=== PATIENT | male | born 1935 | race Caucasian/White ===

== ENCOUNTER 2020-12-22 14:25 | Emergency (ER) | payer MEDICARE, OTHER ==
--- NOTE | 2020-12-22 14:48 | EDM.PDOC ---
ED HPI GENERAL MEDICAL PROBLEM - General Stated Complaint: ER Time Seen by Provider: 12/22/20 14:30 Source of Information: Reports: Patient, EMS, EMS Notes Reviewed, RN, RN Notes Reviewed History Limitations: Reports: Altered Mental Status - History of Present Illness INITIAL COMMENTS - FREE TEXT/NARRATIVE: Patient is an 85-year-old male who presents to ER per [facility] ambulance service with complaint of 3-4 syncopal episodes today. EMS reports patient had chest pain after each syncopal episode, patient denies any chest pains, is pain- free at this time. EMS reports giving the patient 4 baby aspirin in route. Patient states a significant cardiac history, stent placement, MIs, aortic stenosis. States he is to have a valve replacement, but this has not been scheduled yet. Patient denies any recent illnesses. Patient is disoriented to time, date, month, year. states this is new for him. states over the past week patient has been very irritable, and somewhat confused from time to time. She states this is new. Onset: Today, Sudden - Related Data Allergies Allergy/AdvReac Type Severity Reaction Status Date / Time moxifloxacin [From Vigamox] Allergy Cannot Verified 12/22/20 15:27 Remember nitroglycerin Allergy Cannot Verified 12/22/20 15:27 Remember Penicillins Allergy Cannot Verified 12/22/20 15:27 Remember ED ROS GENERAL - Review of Systems Review Of Systems: Comprehensive ROS is negative, except as noted in HPI. ED EXAM, GENERAL - Physical Exam Exam: See Below Exam Limited By: Other (disoriented to time, vague) General Appearance: Alert, WD/WN, No Apparent Distress Eye Exam: Bilateral Eye: EOMI, Normal Inspection Ears: Normal External Exam, Hearing Grossly Normal Nose: Normal Inspection Throat/Mouth: Normal Inspection, Normal Voice, No Airway Compromise Head: Atraumatic, Normocephalic Neck: Normal Inspection, Supple, Non-Tender, Full Range of Motion Respiratory/Chest: No Accessory Muscle Use, Chest Non-Tender, Decreased Breath Sounds, Crackles Cardiovascular: Normal Peripheral Pulses, No Edema, No Gallop, No JVD, No Rub, Systolic Murmur Peripheral Pulses: 2+: Radial (L), Radial (R) GI/Abdominal: Normal Bowel Sounds, Soft, Non-Tender (Male) Exam: Deferred Rectal (Males) Exam: Deferred Back Exam: Normal Inspection, Full Range of Motion, NT Extremities: Normal Inspection, Normal Range of Motion, Non-Tender, Normal C apillary Refill, No Pedal Edema Neurological: Alert, CN II-XII Intact, Normal Cognition, Normal Gait, Normal Reflexes, No Motor/Sensory Deficits, Disoriented Psychiatric: Normal Affect, Normal Mood Skin Exam: Warm, Dry, Intact, Normal Color, No Rash Lymphatic: No Adenopathy #1 Interpretation EKG Date: 12/22/20 Time: 14:34 Rhythm: Other (Sinus rhythm) Rate (Beats/Min): 68 P-Wave: Present QRS: LBBB ST-T: Elevated QT: Normal Comparison: NA - No Prior EKG #2 Interpretation EKG Date: 12/22/20 Time: 16:21 Rhythm: NSR Rate (Beats/Min): 59 [place]: Normal P-Wave: Present QRS: LBBB ST-T: Normal QT: Normal Comparison: No Change Course - Vital Signs Last Recorded V/S: Last Vital Signs Temp 98.8 F 12/22/20 14:25 Pulse 60 12/22/20 18:31 Resp 20 12/22/20 18:31 BP 175/98 H 12/22/20 18:31 Pulse Ox 95 12/22/20 18:31 - Orders/Labs/Meds Orders: Active Orders 24 hr Category Date Time Status EKG Documentation Completion [RC] STAT Care 12/22/20 14:36 Active EKG Documentation Completion [RC] STAT Care 12/22/20 16:16 Active Labs: Laboratory Tests 12/22/20 12/22/20 12/22/20 Range/Units 14:46 15:00 15:00 WBC 7.4 (4.0-10.0) x10^3/uL RBC 4.95 (4.5-6.0) x10^6/uL Hgb 15.0 (14.0-18.0) g/dL Hct 43.5 (40.0-52.0) % MCV 87.9 (78.0-93.0) fL MCH 30.3 (26.0-32.0) pg MCHC 34.5 (32.0-36.0) g/dL RDW Coeff of [place] 13.7 (10.0-15.0) % Plt Count 151 (130-400) x10^3/uL Neut % (Auto) 74.9 (50.0-80.0) % Lymph % (Auto) 15.3 L (25.0-50.0) % [place] % (Auto) 9.2 (2.0-11.0) % Eos % (Auto) 0.3 (0.0-4.0) % Baso % (Auto) 0.3 (0.2-1.2) % PT 11.6 (9.9-12.5) SEC INR 1.0 L (2.0-3.5) D-Dimer, Quantitative (<=0.58) mg/LFEU Sodium (136-145) mmol/L Potassium (3.5-5.1) mmol/L Chloride (98-107) mmol/L Carbon Dioxide (21-32) mmol/L Anion Gap (5-15) mmol/L BUN (7-18) mg/dL Creatinine (0.70-1.30) mg/dL Est Cr Clr Drug Dosing Estimated GFR (MDRD) Glucose (70-99) mg/dL Calcium (8.5-10.1) mg/dL Corrected Calcium (8.5-10.1) mg/dL Magnesium (1.8-2.4) mg/dL Total Bilirubin (0.2-1.0) mg/dL AST (15-37) U/L ALT (16-63) U/L Alkaline Phosphatase (46-116) U/L Troponin I High Sens (<=76) ng/L Total Protein (6.4-8.2) g/dL Albumin (3.4-5.0) g/dL Globulin Albumin/Globulin Ratio Urine Color (YELLOW) Urine Appearance (CLEAR) Urine pH (5.0-8.0) Ur Specific [place] Urine Protein (NEGATIVE) mg/dL Urine Glucose (UA) (NEGATIVE) mg/dL Urine Ketones (NEGATIVE) mg/dL Urine Occult Blood (NEGATIVE) Urine Nitrite (NEGATIVE) Urine Bilirubin (NEGATIVE) Urine Urobilinogen (0.2) EU/dL Ur Leukocyte Esterase (NEGATIVE) Ethyl Alcohol (0-3) mg/dL SARS-CoV-2 RNA ([place]) Negative (NEGATIVE) 12/22/20 12/22/20 12/22/20 Range/Units 15:00 15:00 15:00 WBC (4.0-10.0) x10^3/uL RBC (4.5-6.0) x10^6/uL Hgb (14.0-18.0) g/dL Hct (40.0-52.0) % MCV (78.0-93.0) fL MCH (26.0-32.0) pg MCHC (32.0-36.0) g/dL RDW Coeff of [place] (10.0-15.0) % Plt Count (130-400) x10^3/uL Neut % (Auto) (50.0-80.0) % Lymph % (Auto) (25.0-50.0) % [place] % (Auto) (2.0-11.0) % Eos % (Auto) (0.0-4.0) % Baso % (Auto) (0.2-1.2) % PT (9.9-12.5) SEC INR (2.0-3.5) D-Dimer, Quantitative 0.54 (<=0.58) mg/LFEU Sodium 140 (136-145) mmol/L Potassium 4.0 (3.5-5.1) mmol/L Chloride 103 (98-107) mmol/L Carbon Dioxide 27 (21-32) mmol/L Anion Gap 14.0 (5-15) mmol/L BUN 17 (7-18) mg/dL Creatinine 0.9 (0.70-1.30) mg/dL Est Cr Clr Drug Dosing TNP Estimated GFR (MDRD) > 60 Glucose 124 H (70-99) mg/dL Calcium 8.5 (8.5-10.1) mg/dL Corrected Calcium 8.82 (8.5-10.1) mg/dL Magnesium 2.0 (1.8-2.4) mg/dL Total Bilirubin 0.6 (0.2-1.0) mg/dL AST 22 (15-37) U/L ALT 34 (16-63) U/L Alkaline Phosphatase 75 (46-116) U/L Troponin I High Sens 14 (<=76) ng/L Total Protein 6.9 (6.4-8.2) g/dL Albumin 3.6 (3.4-5.0) g/dL Globulin 3.3 Albumin/Globulin Ratio 1.09 Urine Color (YELLOW) Urine Appearance (CLEAR) Urine pH (5.0-8.0) Ur Specific [place] Urine Protein (NEGATIVE) mg/dL Urine Glucose (UA) (NEGATIVE) mg/dL Urine Ketones (NEGATIVE) mg/dL Urine Occult Blood (NEGATIVE) Urine Nitrite (NEGATIVE) Urine Bilirubin (NEGATIVE) Urine Urobilinogen (0.2) EU/dL Ur Leukocyte Esterase (NEGATIVE) Ethyl Alcohol < 3 (0-3) mg/dL SARS-CoV-2 RNA ([place]) (NEGATIVE) 12/22/20 Range/Units 17:29 WBC (4.0-10.0) x10^3/uL RBC (4.5-6.0) x10^6/uL Hgb (14.0-18.0) g/dL Hct (40.0-52.0) % MCV (78.0-93.0) fL MCH (26.0-32.0) pg MCHC (32.0-36.0) g/dL RDW Coeff of [place] (10.0-15.0) % Plt Count (130-400) x10^3/uL Neut % (Auto) (50.0-80.0) % Lymph % (Auto) (25.0-50.0) % [place] % (Auto) (2.0-11.0) % Eos % (Auto) (0.0-4.0) % Baso % (Auto) (0.2-1.2) % PT (9.9-12.5) SEC INR (2.0-3.5) D-Dimer, Quantitative (<=0.58) mg/LFEU Sodium (136-145) mmol/L Potassium (3.5-5.1) mmol/L Chloride (98-107) mmol/L Carbon Dioxide (21-32) mmol/L Anion Gap (5-15) mmol/L BUN (7-18) mg/dL Creatinine (0.70-1.30) mg/dL Est Cr Clr Drug Dosing Estimated GFR (MDRD) Glucose (70-99) mg/dL Calcium (8.5-10.1) mg/dL Corrected Calcium (8.5-10.1) mg/dL Magnesium (1.8-2.4) mg/dL Total Bilirubin (0.2-1.0) mg/dL AST (15-37) U/L ALT (16-63) U/L Alkaline Phosphatase (46-116) U/L Troponin I High Sens (<=76) ng/L Total Protein (6.4-8.2) g/dL Albumin (3.4-5.0) g/dL Globulin Albumin/Globulin Ratio Urine Color Yellow (YELLOW) Urine Appearance Clear (CLEAR) Urine pH 5.0 (5.0-8.0) Ur Specific [place] 1.025 Urine Protein Negative (NEGATIVE) mg/dL Urine Glucose (UA) Negative (NEGATIVE) mg/dL Urine Ketones Negative (NEGATIVE) mg/dL Urine Occult Blood Negative (NEGATIVE) Urine Nitrite Negative (NEGATIVE) Urine Bilirubin Negative (NEGATIVE) Urine Urobilinogen 0.2 (0.2) EU/dL Ur Leukocyte Esterase Negative (NEGATIVE) Ethyl Alcohol (0-3) mg/dL SARS-CoV-2 RNA ([place]) (NEGATIVE) Meds: Medications Discontinued Medications Generic Name Dose Route Start Last Admin Trade Name Gopiq PRN Reason Stop Dose Admin Labetalol HCl 10 mg 12/22/20 16:44 12/22/20 16:53 Labetalol 20 Mg/4 Ml Syringe IVPUSH 12/22/20 16:45 10 mg NOW ONE Administration Protocol - Radiology Interpretation Free Text/Narrative:: Head CT wo contrast: No acute findings Chest xray: Low lung volumes with bibasilar atelectasis Cardiomegaly without evidence of edema See rad report - Re-Assessments/Exams Free Text/Narrative Re-Assessment/Exam: 12/22/20 16:52 Discussed patient case with Dr. Prescott, Cardiology at [facility], as well as Dr. Myers who agreed to accept the patient. Patient will be transferred via [facility]. 12/22/20 18:56 Labetalol given with some decrease in BP (140's/80's). BP did slowly increase after initial labetalol. Departure - Departure Time of Disposition: 18:57 Disposition: DC/Tfer to Acute Hospital 02 Reason for Transfer *Q: Other Condition: Fair Clinical Impression: Syncopal episodes Qualifiers: Syncope type: unspecified Qualified Code(s): R55 - Syncope and collapse Referrals: Drew,Julieth R, MD [Primary Care Provider] - Forms: ED Department Discharge, Interfacility Transfer JAMEY Sepsis Event Note (ED) - Focused Exam Vital Signs: Vital Signs Temp Pulse Resp BP Pulse Ox 12/22/20 18:31 60 20 175/98 H 95 12/22/20 17:30 69 166/97 H 94 L 12/22/20 17:08 69 19 146/99 H 95 12/22/20 16:41 57 L 16 190/102 H 97 12/22/20 16:07 170/83 H 12/22/20 14:25 98.8 F 72 18 162/92 H 98 - My Orders Last 24 Hours: My Active Orders 12/22/20 14:36 EKG Documentation Completion [RC] STAT 12/22/20 16:16 EKG Documentation Completion [RC] STAT - Assessment/Plan Last 24 Hours: My Active Orders 12/22/20 14:36 EKG Documentation Completion [RC] STAT 12/22/20 16:16 EKG Documentation Completion [RC] STAT
[2020-12-22 15:25] LABS: CHLORIDE,CL 103 mmol/L (98-107); SODIUM,NA 140 mmol/L (136-145)
--- NOTE | 2020-12-22 15:53 | CT ---
[id number] CT/CT Head WO IV EXAM: NONCONTRAST HEAD CT INDICATION: DISORIENTED TO TIME/DATE, SYNCOPAL EPISODES. COMPARISON: None. DISCUSSION: Mild to moderate generalized cerebral atrophy with relative sparing of the occipital lobes. 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 Mild chronic small vessel ischemic changes. No mass effect or midline shift. No acute hemorrhage or extra-axial fluid collection. No acute territorial infarct is identified. Mild bilateral sinus mucosal thickening. IMPRESSION: 1. No acute intracranial findings. Isai Le MD 12/22/20 [id number] Thank you for allowing us to participate in the care of your patient.
[2020-12-22] MEDS ORDERED: Labetalol 20 MG/4 ML Syringe IVPUSH ONE (16:44)
--- NOTE | 2020-12-22 18:33 | CR ---
[id number] RAD/RAD Chest Portable EXAM: PORTABLE CHEST INDICATION: CHEST PAIN COMPARISON: None. DISCUSSION: The lungs are hypoinflated with central vascular crowding and basilar atelectasis. Cardiomegaly without evidence of edema. Sternotomy. Tortuous thoracic aorta. Possible enlargement of the main pulmonary arterial segment. Moderate hiatus hernia. IMPRESSION: 1. Low lung volumes with bibasilar atelectasis. 2. Cardiomegaly without evidence of edema. Isai Le MD 12/22/20 [id number] Thank you for allowing us to participate in the care of your patient.
== END 2020-12-22 19:13 | disposition short-term general hospital (02) ==
LOC: VM.ED 14:25
DX: R55 Syncope and collapse (principal); Z20.822 Contact with and (suspected) exposure to COVID-19; Z88.1 Allergy status to other antibiotic agents; Z88.0 Allergy status to penicillin
CPT/HCPCS: 36415; 70450; 71045; 80053; 80307; 81003; 83735; 84484; 85025; 85379; 85610; 93005; 93010; 96374; 99284; 99285-25; J3490; U0002

== ENCOUNTER 2021-02-07 08:12 | Emergency (ER) | payer MEDICARE, OTHER ==
[2021-02-07] MEDS ORDERED: Sodium Chloride 0.9% 10 ML Syringe FLUSH PRN (08:44)
--- NOTE | 2021-02-07 09:08 | EDM.PDOC ---
ED HPI GENERAL MEDICAL PROBLEM - General Chief Complaint: Abdominal Pain Stated Complaint: Abdominal Pain Time Seen by Provider: 02/07/21 08:33 Source of Information: Reports: Patient History Limitations: Reports: No Limitations - History of Present Illness INITIAL COMMENTS - FREE TEXT/NARRATIVE: Patient comes emergency department today from home with complaints of lower abdominal pain. This patient woke this morning he had severe cramping in the lower aspect of his abdomen. It was so severe it almost took his breath away. It is almost completely resolved. He has no other abdominal pain at this time. He has had no nausea or vomiting. No hematuria dysuria urinary frequency. No flank pain. He had a normal bowel movement this morning. He has had no black tarry stools or diarrhea. He denies any fever or chills. He has had surgery in his abdomen to remove his colon due to colon cancer but this was many years ago. He has no history of diverticulosis or diverticulitis. He does feel quite a bit better now. He does have a rather extensive history of hypertension aortic stenosis that is severe coronary artery disease recently had a pacemaker placed hyperlipidemia. He has had no chest pain no shortness of breath or difficulty breathing. No cough or congestion. No weakness dizziness lightheadedness. No palpitations. He has received his Covid vaccine. Abdominal Pain Pain Score (Numeric/FACES): 5 - Related Data Allergies Allergy/AdvReac Type Severity Reaction Status Date / Time nitroglycerin Allergy Severe Hives Verified 02/07/21 09:28 moxifloxacin [From Vigamox] Allergy Intermediate Redness Verified 02/07/21 09:28 Penicillins Allergy Cannot Verified 02/07/21 08:29 Remember Home Meds: Home Meds Amiodarone [Cordarone] 200 mg PO DAILY 02/07/21 [History] Aspirin [Aspirin EC] 81 mg PO ASDIRECTED 02/07/21 [History] Ferrous Sulfate [Feosol] 325 mg PO DAILY 02/07/21 [History] Metoprolol Succinate [Toprol XL] 200 mg PO DAILY 02/07/21 [History] Rosuvastatin [Crestor] 10 mg PO DAILY 02/07/21 [History] Spironolactone [Aldactone] 25 mg PO DAILY 02/07/21 [History] Triamcinolone Acetonide [Kenalog 0.1% Crm] 80 gm TOP BID PRN 02/07/21 [History] amLODIPine [Norvasc] 5 mg PO DAILY 02/07/21 [History] lisinopriL [Prinivil] 20 mg PO BID 02/07/21 [History] Past Medical History Cardiovascular History: Reports: Angina, Heart Failure, High Cholesterol, Hypertension, Stents Respiratory History: Reports: Sleep Apnea Gastrointestinal History: Reports: Hiatal Hernia Musculoskeletal History: Reports: Osteoarthritis - Past Surgical History Cardiovascular Surgical History: Reports: Coronary Artery Stent Other Cardiovascular Surgeries/Procedures: aortic valve stenosis. non-rheumatic mitral regurgitation Social & Family History - Tobacco Use Tobacco Use Status *Q: Former Tobacco User Used Tobacco, but Quit: Yes Month/Year Tobacco Last Used: 50 - Recreational Drug Use Recreational Drug Use: No ED ROS GENERAL - Review of Systems Review Of Systems: Comprehensive ROS is negative, except as noted in HPI. ED EXAM, GI/ABD - Physical Exam Exam: See Below Exam Limited By: No Limitations General Appearance: Alert, WD/WN, No Apparent Distress Respiratory/Chest: No Respiratory Distress, Lungs Clear, Normal Breath Sounds, No Accessory Muscle Use, Chest Non-Tender Cardiovascular: Normal Peripheral Pulses, Regular Rate, Rhythm, Systolic Murmur GI/Abdominal Exam: Normal Bowel Sounds, Soft, Non-Tender, No Organomegaly, No Distention, No Abnormal Bruit, Pelvis Stable (Male) Exam: Deferred Rectal (Males) Exam: Deferred Back Exam: Normal Inspection, Full Range of Motion Extremities: Normal Inspection, Normal Range of Motion, No Pedal Edema, Normal Capillary Refill Neurological: Alert, Oriented, Normal Cognition, No Motor/Sensory Deficits Psychiatric: Normal Affect, Normal Mood Skin Exam: Warm, Dry, Intact, Normal Color, No Rash Lymphatic: No Adenopathy Course - Vital Signs Last Recorded V/S: Last Vital Signs Temp 97.2 F 02/07/21 08:34 Pulse 60 02/07/21 08:34 Resp 16 02/07/21 08:34 BP 137/70 02/07/21 08:34 Pulse Ox 96 02/07/21 08:34 - Orders/Labs/Meds Orders: Active Orders 24 hr Category Date Time Status Peripheral IV Insertion Adult [OM.PC] Stat Oth 02/07/21 08:44 Ordered Labs: Laboratory Tests 02/07/21 02/07/21 02/07/21 Range/Units 08:55 09:10 09:10 WBC 6.1 (4.0-10.0) x10^3/uL RBC 4.72 (4.5-6.0) x10^6/uL Hgb 14.7 (14.0-18.0) g/dL Hct 41.7 (40.0-52.0) % MCV 88.3 (78.0-93.0) fL MCH 31.1 (26.0-32.0) pg MCHC 35.3 (32.0-36.0) g/dL RDW Coeff of [place] 13.7 (10.0-15.0) % Plt Count 141 (130-400) x10^3/uL Neut % (Auto) 62.7 (50.0-80.0) % Lymph % (Auto) 24.1 L (25.0-50.0) % [place] % (Auto) 11.6 H (2.0-11.0) % Eos % (Auto) 1.1 (0.0-4.0) % Baso % (Auto) 0.5 (0.2-1.2) % Sodium 138 (136-145) mmol/L Potassium 4.2 (3.5-5.1) mmol/L Chloride 102 (98-107) mmol/L Carbon Dioxide 27 (21-32) mmol/L Anion Gap 13.2 (5-15) mmol/L BUN 17 (7-18) mg/dL Creatinine 1.0 (0.70-1.30) mg/dL Est Cr Clr Drug Dosing TNP Estimated GFR (MDRD) > 60 Glucose 94 (70-99) mg/dL Lactic Acid (0.4-2.0) mmol/L Calcium 8.8 (8.5-10.1) mg/dL Corrected Calcium 9.1 (8.5-10.1) mg/dL Total Bilirubin 0.7 (0.2-1.0) mg/dL AST 28 (15-37) U/L ALT 43 (16-63) U/L Alkaline Phosphatase 76 (46-116) U/L C-Reactive Protein < 0.2 (<=0.9) mg/dL Total Protein 7.2 (6.4-8.2) g/dL Albumin 3.6 (3.4-5.0) g/dL Globulin 3.6 Albumin/Globulin Ratio 1.00 Lipase 108 (73-393) U/L Urine Color Yellow (YELLOW) Urine Appearance Clear (CLEAR) Urine pH 6.0 (5.0-8.0) Ur Specific [place] 1.015 Urine Protein Negative (NEGATIVE) mg/dL Urine Glucose (UA) Negative (NEGATIVE) mg/dL Urine Ketones Negative (NEGATIVE) mg/dL Urine Occult Blood Negative (NEGATIVE) Urine Nitrite Negative (NEGATIVE) Urine Bilirubin Negative (NEGATIVE) Urine Urobilinogen 0.2 (0.2) EU/dL Ur Leukocyte Esterase Negative (NEGATIVE) 02/07/21 Range/Units 09:10 WBC (4.0-10.0) x10^3/uL RBC (4.5-6.0) x10^6/uL Hgb (14.0-18.0) g/dL Hct (40.0-52.0) % MCV (78.0-93.0) fL MCH (26.0-32.0) pg MCHC (32.0-36.0) g/dL RDW Coeff of [place] (10.0-15.0) % Plt Count (130-400) x10^3/uL Neut % (Auto) (50.0-80.0) % Lymph % (Auto) (25.0-50.0) % [place] % (Auto) (2.0-11.0) % Eos % (Auto) (0.0-4.0) % Baso % (Auto) (0.2-1.2) % Sodium (136-145) mmol/L Potassium (3.5-5.1) mmol/L Chloride (98-107) mmol/L Carbon Dioxide (21-32) mmol/L Anion Gap (5-15) mmol/L BUN (7-18) mg/dL Creatinine (0.70-1.30) mg/dL Est Cr Clr Drug Dosing Estimated GFR (MDRD) Glucose (70-99) mg/dL Lactic Acid 0.8 (0.4-2.0) mmol/L Calcium (8.5-10.1) mg/dL Corrected Calcium (8.5-10.1) mg/dL Total Bilirubin (0.2-1.0) mg/dL AST (15-37) U/L ALT (16-63) U/L Alkaline Phosphatase (46-116) U/L C-Reactive Protein (<=0.9) mg/dL Total Protein (6.4-8.2) g/dL Albumin (3.4-5.0) g/dL Globulin Albumin/Globulin Ratio Lipase (73-393) U/L Urine Color (YELLOW) Urine Appearance (CLEAR) Urine pH (5.0-8.0) Ur Specific [place] Urine Protein (NEGATIVE) mg/dL Urine Glucose (UA) (NEGATIVE) mg/dL Urine Ketones (NEGATIVE) mg/dL Urine Occult Blood (NEGATIVE) Urine Nitrite (NEGATIVE) Urine Bilirubin (NEGATIVE) Urine Urobilinogen (0.2) EU/dL Ur Leukocyte Esterase (NEGATIVE) Meds: Medications Discontinued Medications Generic Name Dose Route Start Last Admin Trade Name Freq PRN Reason Stop Dose Admin Sodium Chloride 10 ml 02/07/21 08:44 Sodium Chloride 0.9% 10 Ml Syringe FLUSH ASDIRECTED PRN Keep Vein Open - Re-Assessments/Exams Free Text/Narrative Re-Assessment/Exam: 02/07/21 12:02 Labs are drawn. CBC CMP lactic acid CRP and urinalysis are completely normal. Patient is asymptomatic at this time. We have been seeing quite a bit of viral gastroenteritis going around with cramping abdominal pain nausea vomiting and diarrhea. He does not have the nausea vomiting or diarrhea but 1 surprise me if he develops this in the next day or so. I do not think that further evaluation is needed at this time as he is asymptomatic and his laboratory evaluation is completely normal. I discussed with him the possibility of exposure to the viral gastroenteritis and treatment for that if it does develop. He is comfortable with this plan. If anything new or worse he is to return. Discharge directions as below are explained to the patient he was comfortable with this plan and his questions were answered. Departure - Departure Time of Disposition: 09:48 Disposition: Home, Self-Care 01 Clinical Impression: Abdominal pain Qualifiers: Abdominal location: lower abdomen, unspecified Qualified Code(s): R10.30 - Lower abdominal pain, unspecified - Discharge Information Instructions: Viral Gastroenteritis, Adult, [id number], Food Choices to Help Relieve Diarrhea, Adult, Abdominal Pain, Adult, [id number] Referrals: Julieth Grant MD [Primary Care Provider] - Forms: ED Department Discharge Additional Instructions: Home today. Rest Make sure and keep up on your fluids. Easy diet. Nothing fatty spicy or rich. I gave you some instructions on gastroenteritis, nausea vomiting diarrhea as well as we are seeing quite a bit of it currently in the community. If diarrhea does start, no dairy until symptom free for 48 hrs other than yogurt with live cultures. Bananas applesauce toast yogurt and slowly advance your diet. Return to the ED if new or worsening symptoms. Follow up in the clinic early next week if symptoms persist. Sepsis Event Note (ED) - Evaluation Sepsis Screening Result: No Definite Risk - Focused Exam Vital Signs: Vital Signs Temp Pulse Resp BP Pulse Ox 02/07/21 08:34 97.2 F 60 16 137/70 96 - My Orders Last 24 Hours: My Active Orders 02/07/21 08:44 Peripheral IV Insertion Adult [OM.PC] Stat - Assessment/Plan Last 24 Hours: My Active Orders 02/07/21 08:44 Peripheral IV Insertion Adult [OM.PC] Stat
[2021-02-07 09:35] LABS: ANION GAP 13.2 mmol/L (5-15); CHLORIDE,CL 102 mmol/L (98-107); SODIUM,NA 138 mmol/L (136-145)
== END 2021-02-07 10:09 | disposition home or self-care (01) ==
LOC: VM.ED 08:12 → SUPCPDRO 08:12 → VM.ED 10:09
DX: R10.30 Lower abdominal pain, unspecified (principal); E78.00 Pure hypercholesterolemia, unspecified; I11.0 Hypertensive heart disease with heart failure; I50.9 Heart failure, unspecified; M19.90 Unspecified osteoarthritis, unspecified site; Z79.82 Long term (current) use of aspirin; Z87.891 Personal history of nicotine dependence; Z88.1 Allergy status to other antibiotic agents; Z88.0 Allergy status to penicillin
CPT/HCPCS: 80053; 81003; 83605; 83690; 85025; 86140; 99284

== ENCOUNTER 2021-03-26 11:07 | Emergency (ER) | payer MEDICARE, OTHER ==
--- NOTE | 2021-03-26 11:40 | EDM.PDOC ---
ED HPI GENERAL MEDICAL PROBLEM - General Chief Complaint: General Stated Complaint: HEART RATE concerns Time Seen by Provider: 03/26/21 11:15 Source of Information: Reports: Patient History Limitations: Reports: No Limitations - History of Present Illness INITIAL COMMENTS - FREE TEXT/NARRATIVE: Patient comes into the emergency department after being sent from the clinic for a slow heart rate. 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 Patient states that he was at the clinic to set his blood pressure checked and a normal checkup and states that the staff had utilized the machine to check his heart rate and sent him over to the emergency department. Patient has been asymptomatic and has no major concerns or complaints he states that he has been out gardening drinking water as he should and has been following the cardiac exercise program that he is to be following. Patient states that he had no dizziness, lightheadedness, blurred vision, chest pain, nausea, vomiting, or concerns. He states that he does check his blood pressure and pulse at home and has never had any issues or concerns and is always remained above 60 for the pulse. Onset: Today Location: Reports: Other Quality: Reports: Other - Related Data Allergies Allergy/AdvReac Type Severity Reaction Status Date / Time nitroglycerin Allergy Severe Hives Verified 02/07/21 09:28 moxifloxacin [From Vigamox] Allergy Intermediate Redness Verified 02/07/21 09:28 Penicillins Allergy Cannot Verified 02/07/21 08:29 Remember Home Meds: Home Meds Amiodarone [Cordarone] 200 mg PO DAILY 02/07/21 [History] Aspirin [Aspirin EC] 81 mg PO ASDIRECTED 02/07/21 [History] Ferrous Sulfate [Feosol] 325 mg PO DAILY 02/07/21 [History] Metoprolol Succinate [Toprol XL] 200 mg PO DAILY 02/07/21 [History] Rosuvastatin [Crestor] 10 mg PO DAILY 02/07/21 [History] Spironolactone [Aldactone] 25 mg PO DAILY 02/07/21 [History] Triamcinolone Acetonide [Kenalog 0.1% Crm] 80 gm TOP BID PRN 02/07/21 [History] amLODIPine [Norvasc] 5 mg PO DAILY 02/07/21 [History] lisinopriL [Prinivil] 20 mg PO BID 02/07/21 [History] Past Medical History HEENT History: Reports: Cataract Cardiovascular History: Reports: Angina, Heart Failure, High Cholesterol, Hypertension, Stents, Syncope Respiratory History: Reports: Sleep Apnea Gastrointestinal History: Reports: Hiatal Hernia Musculoskeletal History: Reports: Osteoarthritis - Past Surgical History Cardiovascular Surgical History: Reports: Coronary Artery Stent Other Cardiovascular Surgeries/Procedures: aortic valve stenosis. non-rheumatic mitral regurgitation ED ROS GENERAL - Review of Systems Review Of Systems: Comprehensive ROS is negative, except as noted in HPI. Constitutional: Reports: No Symptoms HEENT: Reports: No Symptoms Respiratory: Reports: No Symptoms Cardiovascular: Reports: No Symptoms Endocrine: Reports: No Symptoms GI/Abdominal: Reports: No Symptoms : Reports: No Symptoms Musculoskeletal: Reports: No Symptoms Skin: Reports: No Symptoms Neurological: Reports: No Symptoms Psychiatric: Reports: No Symptoms Hematologic/Lymphatic: Reports: No Symptoms Immunologic: Reports: No Symptoms ED EXAM, GENERAL - Physical Exam Exam: See Below Exam Limited By: No Limitations General Appearance: Alert, WD/WN, No Apparent Distress Ears: Normal External Exam, Normal Canal, Hearing Grossly Normal, Normal TMs Ear Exam: Bilateral Ear: Auricle Normal, Canal Normal, TM normal Nose: Normal Inspection, Normal Mucosa, No Blood Throat/Mouth: Normal Inspection, Normal Lips, Normal Teeth, Normal Gums, Normal Oropharynx, Normal Voice, No Airway Compromise Head: Atraumatic, Normocephalic Neck: Normal Inspection, Supple, Non-Tender, Full Range of Motion Respiratory/Chest: No Respiratory Distress, Lungs Clear, Normal Breath Sounds, No Accessory Muscle Use, Chest Non-Tender Cardiovascular: Normal Peripheral Pulses, Regular Rate, Rhythm, No Edema, No Gallop, No JVD, No Murmur, No Rub GI/Abdominal: Normal Bowel Sounds, Soft, Non-Tender, No Organomegaly, No Distention, No Abnormal Bruit, No Mass (Male) Exam: Deferred Rectal (Males) Exam: Deferred Back Exam: Normal Inspection, Full Range of Motion, NT Extremities: Normal Inspection, Normal Range of Motion, Non-Tender, Normal Capillary Refill, No Pedal Edema Neurological: Alert, Oriented, CN II-XII Intact, Normal Cognition, Normal Gait Psychiatric: Normal Affect, Normal Mood Skin Exam: Warm, Dry, Intact, Normal Color, No Rash #1 Interpretation EKG Date: 03/26/21 EKG Interpretation Comments: paced rhythm Departure - Departure Time of Disposition: 11:45 Disposition: Home, Self-Care 01 Condition: Good Clinical Impression: Paced cardiac rhythm - Discharge Information *PRESCRIPTION DRUG MONITORING PROGRAM REVIEWED*: Not Applicable *COPY OF PRESCRIPTION DRUG MONITORING REPORT IN PATIENT PAMELA: Not Applicable Instructions: Bradycardia, Adult Referrals: Julieth Grant MD [Primary Care Provider] - Forms: ED Department Discharge Additional Instructions: 1. rest 2. increase your water intake 3. Continue all at home medications 4. Activity and diet as tolerated 5. Can take over the counter Tylenol for any pain or discomfort 6. Follow up with PCP if symptoms continue, return, or progress 7. Call with any questions or concerns - Assessment/Plan Assessment:: 1. heart rate concern Plan: 1. EKG completed 2. 30 minutes of monitoring while resting and ambulating. No changes noted in rate 3. Patient and nursing staff was updated regarding the plan of care 4. Education provided the patient regarding activity, diet, rest, [id number] medication modalities, and follow-up care was provided 5. Patient and family are agreeable to the above plan of care 6. All questions and concerns were addressed with the patient and family prior to discharge
== END 2021-03-26 11:45 | disposition home or self-care (01) ==
LOC: VM.ED 11:07
DX: I49.9 Cardiac arrhythmia, unspecified (principal); I11.0 Hypertensive heart disease with heart failure; I50.9 Heart failure, unspecified; E78.00 Pure hypercholesterolemia, unspecified; Z95.5 Presence of coronary angioplasty implant and graft; Z88.0 Allergy status to penicillin; Z88.1 Allergy status to other antibiotic agents; Z79.82 Long term (current) use of aspirin; Z79.899 Other long term (current) drug therapy
CPT/HCPCS: 93005; 93010; 99284; 99284-25

== ENCOUNTER 2024-03-15 18:44 | Emergency (ER) | payer MEDICARE, OTHER ==
[2024-03-15 19:16] LABS: BASOPHILS PERCENT AUTO 0.3 % (0.2-1.2); EOSINOPHILS PERCENT AUTO 0.7 % (0.0-4.0); HEMATOCRIT 41.3 % (40.0-52.0); HEMOGLOBIN 13.7 g/dL (14.0-18.0); IMMATURE GRAN ABSOLUTE AUTO 0.01 x10^3/uL (0.00-0.07); LYMPHOCYTES ABSOLUTE AUTO 1.3 x10^3/uL (1.0-4.8); LYMPHOCYTES PERCENT AUTO 21.1 % (25.0-50.0); MEAN CORPUSCULAR HGB CONC 33.2 g/dL (32.0-36.0); MEAN CORPUSCULAR VOLUME 90.4 fL (78.0-93.0); MONOCYTES ABSOLUTE AUTO 0.5 x10^3/uL (0.0-0.8); MONOCYTES PERCENT AUTO 7.9 % (2.0-11.0); NEUTROPHILS ABSOLUTE AUTO 4.1 x10^3/uL (1.8-7.7); NEUTROPHILS PERCENT AUTO 69.8 % (50.0-80.0); PLATELET COUNT,PLT 134 x10^3/uL (130-400); RED BLOOD CELL COUNT 4.57 x10^6/uL (4.5-6.0); WHITE BLOOD CELL COUNT,WBC 5.9 x10^3/uL (4.0-10.0)
[2024-03-15 19:31] LABS: INR 1.1 (0.9-1.1); PROTHROMBIN TIME 10.9 SEC (8.9-11.5); PTT,PARTIAL THROMBOPLSTIN TIME 26.1 SEC (21.9-33.8)
[2024-03-15 19:41] LABS: A/G RATIO 0.89; ALANINE AMINOTRANSFERASE,ALT 29 U/L (16-63); ALBUMIN 3.4 g/dL (3.4-5.0); ALKALINE PHOSPHATASE 82 U/L (46-116); ASPARTATE AMNIOTRANSFERASE,AST 20 U/L (15-37); BILIRUBIN TOTAL 0.5 mg/dL (0.2-1.0); BLOOD UREA NITROGEN,BUN 27 mg/dL (7-18); CALCIUM 9.1 mg/dL (8.5-10.1); CARBON DIOXIDE,CO2 25 mmol/L (21-32); CHLORIDE,CL 103 mmol/L (98-107); CREATININE 1.3 mg/dL (0.70-1.30); GLUCOSE RANDOM 172 mg/dL (70-99); PROTEIN TOTAL,TP 7.2 g/dL (6.4-8.2); SODIUM,NA 140 mmol/L (136-145); TSH ULTRASENSITIVE 1.704 uIU/mL (0.358-3.74)
[2024-03-15 19:42] LABS: C-REACTIVE PROTEIN < 0.50 mg/dL (<=0.50); ESTIMATED GFR 53 mL/min (>=60)
== END 2024-03-15 20:15 | disposition home or self-care (01) ==
LOC: VM.ED 18:44
DX: R55 Syncope and collapse (principal); I10 Essential (primary) hypertension; E78.00 Pure hypercholesterolemia, unspecified; Z79.899 Other long term (current) drug therapy; Z79.82 Long term (current) use of aspirin; Z88.0 Allergy status to penicillin; Z88.8 Allergy status to other drugs, medicaments and biological substances
CPT/HCPCS: 36415; 80053; 83735; 84443; 84484; 85025; 85610; 85730; 86140; 99284